=== PATIENT | female | born 1965 | race Hispanic/Latino ===

== ENCOUNTER 2022-05-19 13:48 | Emergency (ER) | payer OTHER ==
[~2022-05-19] VITALS: Ht 157.5 cm; Wt 74.8 kg
[2022-05-19] MEDS ORDERED: KETOROLAC 30MG VIAL (30MG/ML) IM STA (14:15)
[2022-05-19] MEDS ORDERED: NAPR375T6 PO (14:45)
[2022-05-19 15:14] VITALS: BP 143/51
== END 2022-05-19 15:17 | disposition home or self-care (01) ==
LOC: EDH 13:48
DX: S86.911A Strain of unspecified muscle(s) and tendon(s) at lower leg level, right leg, initial encounter (principal); V29.888A Rider (driver) (passenger) of other motorcycle injured in other specified transport accidents, initial encounter; Y93.89 Activity, other specified; Y92.89 Other specified places as the place of occurrence of the external cause; Y99.8 Other external cause status
CPT/HCPCS: 99283; 29505; 96372; J1885